=== PATIENT | male | born 1965 ===

== ENCOUNTER 2018-07-25 05:38 | Observation (INO) | payer BC ==
[~2018-07-25 05:38] MED LIST: Buffered Lidocaine 1% SYRIN* 1 ML/SYRINGE INTRADERM ONE
[2018-07-25] MEDS ORDERED: Famotidine IV* 10 MG/ML 2 ML (20 mg) IV ONE (06:00)
[2018-07-25] MEDS ORDERED: Lactated Ringers 1000 ML Bag* 1,000 ML IV SCH (06:00)
[2018-07-25] MEDS ORDERED: ceFAZolin 2 GM PREMIX in ORs 2 GM/50 ML BAG IVPB ONE (06:03)
[2018-07-25] MEDS ORDERED: Buffered Lidocaine 1% SYRIN* 1 ML/SYRINGE INTRADERM ONE (06:03)
[2018-07-25] MEDS ORDERED: Famotidine IV* 10 MG/ML 2 ML (20 mg) ONE (06:04)
[2018-07-25] MEDS ORDERED: Bupivacaine 0.25% EPI 200,000* 30 ML SDV ONE (07:00)
[2018-07-25] MEDS ORDERED: Dexamethasone IV* 4 MG/ML 1 ML (4 MG) ONE (07:07)
[2018-07-25] MEDS ORDERED: Cisatracurium* 2 MG/ML MDV 5 ML ONE (07:07)
[2018-07-25] MEDS ORDERED: Lidocaine 2% PF * 5 ML VIAL ONE (07:07)
[2018-07-25] MEDS ORDERED: fentaNYL* 50 MCG/ML 2 ML VIAL (100 MCG VIAL) ONE ×3 (07:07→10:04)
[2018-07-25] MEDS ORDERED: Propofol* 10 MG/ML 20 ML BTL ONE ×2 (07:07→07:46)
[2018-07-25] MEDS ORDERED: Ketorolac INJ* 30 MG/ML 1 ML VIAL ONE (07:07)
[2018-07-25] MEDS ORDERED: Midazolam* 1 MG/ML 5 ML VIAL (5 MG) ONE (07:07)
[2018-07-25] MEDS ORDERED: Ondansetron INJ* 2 MG/ML VIAL ONE (07:07)
[2018-07-25] MEDS ORDERED: EPHEDrine (Pressors)* 50 MG/ML VIAL ONE (08:05)
[2018-07-25] MEDS ORDERED: oxyCODONE/Acetamin 5/325 MG* TAB PO PRN ×2 (08:22→09:30)
[2018-07-25] MEDS ORDERED: Naloxone* 0.4 MG/ML 1 ML VIAL IV PRN (08:22)
[2018-07-25] MEDS ORDERED: HYDROmorphone INJ1* 1 MG/ML SYRINGE IV PRN (08:22)
[2018-07-25] MEDS ORDERED: fentaNYL* 50 MCG/ML 2 ML VIAL (100 MCG VIAL) IV PRN (08:22)
[2018-07-25] MEDS ORDERED: Ondansetron INJ* 2 MG/ML VIAL IV PRN ×2 (08:22→09:30)
[2018-07-25] MEDS ORDERED: HYDROmorphone INJ1* 1 MG/ML SYRINGE ONE (09:05)
[2018-07-25] MEDS ORDERED: Ketorolac INJ* 30 MG/ML 1 ML VIAL IV PRN (09:30)
[2018-07-25] MEDS ORDERED: HYDROmorphone INJ1* 1 MG/ML SYRINGE IV SLOW PU PRN (09:30)
[2018-07-25] MEDS ORDERED: NS 0.9% 1000 ML** 1,000 ML IV SCH ×2 (09:30→14:15)
[2018-07-25] MEDS ORDERED: oxyCODONE/Acetamin 5/325 MG* TAB ONE (10:04)
[2018-07-25] MEDS ORDERED: ZOSYN 3.375 GM x ONE DOSE over 30 miuntes IVPB ×2 (11:30)
[2018-07-25] MEDS: Piperacillin/Tazobactam VIAL*) 3.375 GM in NS 0.9% 100 ML* 100 ML IVPB SCH (15:25)
--- NOTE | 2018-07-25 17:59 | OP ---
CC: Derrick Barrett MD, [place], [place] * DATE OF OPERATION: 07/25/18 - ROOM #334 DATE OF : 61 SURGEON: Herbert Helms MD CARPET BINDER: MARIELENA Bloom student. ANESTHESIOLOGIST: Dr. Llanos. ANESTHESIA: General endotracheal. PRE-OP DIAGNOSIS: Symptomatic cholelithiasis. POST-OP DIAGNOSIS: [id number] cholecystitis with contained perforation of gallbladder. OPERATIVE PROCEDURE: Laparoscopic cholecystectomy. ESTIMATED BLOOD LOSS: Less than 50 mL. IV FLUIDS: Crystalloid. SPECIMEN: Gallbladder. DRAINS: A 10-mm Antony-Palacios. COMPLICATIONS: None. COUNTS: The instrument, needle, and sponge counts were correct. DESCRIPTION OF PROCEDURE: The patient was brought to the operating room and placed on the table supine. Sequential compression devices were placed on both lower extremities and general anesthesia was administered. He was positioned and padded appropriately. He received appropriate intravenous antibiotics. He was prepped and draped in usual sterile fashion. A time-out was performed. Local anesthetic was infiltrated into the skin and soft tissue prior to making each incision. Entry into the abdomen was through a transumbilical vertical incision using an open technique. After accessing the peritoneal cavity, a 12- mm trocar was placed and carbon dioxide was insufflated to a pressure of 15 mmHg. Under direct visualization, 5-mm trocars were placed in the subxiphoid position and 2 in the right upper quadrant. The gallbladder appeared to be pale , pink in color with evidence of acute on chronic inflammation. The gallbladder was grasped at the fundus and retracted cephalad. The omentum was densely adherent to the gallbladder and in dissecting it free, thick pus was encountered. This was aspirated with endoscopic suction. As additional omentum was peeled off the gallbladder wall, there appeared to be a perforation of the gallbladder and bile was emanating from this site. Again, endoscopic suction was used to control this. The suction was placed within the gallbladder lumen and aspirated the bile. Subsequently, a large stone was noted to be impacted in the infundibulum. This was able to be milked back and then the dissection proceeded using blunt dissection in order to separate out the cystic duct and identify the node of Calot in the cystic artery. The dissection on the cystic duct proceeded both laterally and medially until critical view was obtained and then the structure was triply clipped and divided. The cystic artery was doubly clipped and divided. The gallbladder was retracted by grasping the cystic duct stump, elevating this cephalad and the cautery was used to separate the gallbladder from the liver bed. At various points, the gallbladder itself was entered and portions of the gallbladder wall were left on the liver. The gallbladder and its contents were placed into the endoscopic retrieval bag and retrieved through the umbilical port site, which had to be enlarged in order to accommodate the large gallstones. After inspecting the clips and the bed of dissection, noting it to be hemostatic and noting the clips were intact, copious lavage was performed with warm saline until clear. A 10-mm Antony-Palacios drain was placed into the peritoneal cavity and withdrawn through the 5-mm trocar at the most lateral site. The drain was placed into Gomez's pouch and into the area of the gallbladder fossa. The drain was sutured to skin with a 3-0 Prolene. The remaining ports were removed under direct visualization and carbon dioxide was released. The umbilical site was closed with 0 Vicryl in [id number] fashion using two sutures to approximate the fascia. The skin incisions were then closed with 4-0 Monocryl in subcuticular fashion or simple fashion in order to approximate the wound. At the 5-mm port sites, the wounds were dressed with Steri-Strips. At the umbilical site, the wound was dressed with 4x4 gauze and gauze pad placed around the DUNIA site. The patient tolerated this procedure well, was extubated and he was transferred to the recovery room in stable condition. [id number]/[facility] #: [id number] MOHSEN
[2018-07-25] MEDS: Acetaminophen TAB* 325 MG PO PRN (21:12)
[2018-07-26] MEDS: Piperacillin/Tazobactam VIAL*) 3.375 GM in NS 0.9% 100 ML* 100 ML IVPB SCH ×2 (00:03→07:21)
[2018-07-26] MEDS: Acetaminophen TAB* 325 MG PO PRN (07:24)
[2018-07-26 07:27] VITALS: BP 123/73
--- NOTE | 2018-07-26 17:01 | DS ---
CC: Dr. Derrikc Barrett* DISCHARGE SUMMARY: DATE OF ADMISSION: 07/25/18 DATE OF DISCHARGE: 07/26/18 ATTENDING SURGEON: Dr. Herbert Helms* (MARIEELNA Bee dictating). HOSPITAL COURSE: Please refer to admission history and physical and operative note for details. The patient was taken to the operating room on 07/25/18, at which time, he underwent laparoscopic cholecystectomy. Findings at the time of surgery included evidence of a prior contained perforation of the gallbladder. The patient was kept overnight for monitoring and additional antibiotic dosing. A Antony- Palacios drain was also placed in the liver bed. The patient has had an uneventful postoperative course and was seen by Dr. Helms the morning of discharge (see separate progress note). Vital signs as of this morning; temperature 98.3, blood pressure 123/73, pulse 53, respirations 18, room air saturation 97%. Dr. Helms did not feel that any additional oral antibiotics were required. The patient was instructed in drain care and has an appointment in our office for followup and probable drain removal on 07/28/18. He will use Tylenol and/or ibuprofen p.r.n. for mild to moderate pain and a prescription was electronically sent to his pharmacy for [place] p.r.n. He is discharged to home in good condition. MARIELENA BEE [id number]/[facility] #: [id number] MTDD
== END 2018-07-26 11:30 | disposition home or self-care (01) ==
LOC: OR 05:38 → SSU 10:47
PROVIDERS: ADMIT Surgery; ATTEND Surgery
DX: K80.20 Calculus of gallbladder without cholecystitis without obstruction (principal); R11.2 Nausea with vomiting, unspecified; R10.13 Epigastric pain
CPT/HCPCS: 88304; 96365; 96366; A9270-GY; G0378; J0690; J1100; J1170; J1885; J2250; J2405; J2543; J2704; J3010